=== PATIENT | male | born 1955 | race Caucasian/White ===

== ENCOUNTER 2018-05-25 09:49 | Emergency (ER) | payer MEDICARE ==
[~2018-05-25] VITALS: Ht 180.3 cm; Wt 73.9 kg
[2018-05-25] MEDS ORDERED: NICOTINE PATCH1 EAC4 TD (10:16)
[2018-05-25] MEDS ORDERED: BUPROPION XL150 MG PO (10:17)
[2018-05-25] MEDS ORDERED: GABAPENTIN800 MG PO (10:17)
[2018-05-25] MEDS ORDERED: ACID CONTROL150 MG PO (10:18)
[2018-05-25] MEDS ORDERED: COREG25 MG PO (10:18)
[2018-05-25] MEDS ORDERED: CHLORDIAZEPOXID25 MG PO (10:20)
[2018-05-25] MEDS ORDERED: TYLENOL325 MG PO (10:20)
[2018-05-25] MEDS ORDERED: IBUPROFEN400 MG PO (10:21)
[2018-05-25] MEDS ORDERED: HYDROXYZINE PAM50 MG PO (10:24)
[2018-05-25] MEDS ORDERED: MELATONIN1 MG PO (10:25)
[2018-05-25] MEDS ORDERED: ONDANSETRON ODT8 MG PO (10:25)
[2018-05-25] MEDS ORDERED: TRAZODONE HCL100 MG PO (10:26)
[2018-05-25] MEDS ORDERED: CELEBREX100 MG PO (10:26)
[2018-05-25] MEDS ORDERED: BACLOFEN10 MG PO (10:26)
[2018-05-25] MEDS ORDERED: CONSTULOSE10 GM/15 M PO (10:27)
--- NOTE | 2018-05-26 13:56 | EKG ---
[facility] [address] [place] [address] Signed Normal sinus rhythm Normal ECG No previous ECGs available Confirmed by JOVANNA CHIN MD ([id number]) on 05/26/2018 1:56:04 PM Electronically Signed By: JOVANNA CHIN MD 05/26/18 1356 PATIENT NAME: PRITI BUCK Electrocardiogram DATE OF : 51 PHYSICIAN: JOVANNA CHIN MD REPORT #: [id number] REPORT IS CONFIDENTIAL AND NOT TO BE RELEASED WITHOUT AUTHORIZATION
== END 2018-05-25 12:18 | disposition home or self-care (01) ==
LOC: ED 09:49
DX: S00.11XA Contusion of right eyelid and periocular area, initial encounter (principal); R42 Dizziness and giddiness; W19.XXXA Unspecified fall, initial encounter; Z79.899 Other long term (current) drug therapy
CPT/HCPCS: 70486; 71045; 80053; 81001; 84484; 85025; 93005; 93010; 99284-25